=== PATIENT | male | born 1970 | race Caucasian/White ===

== ENCOUNTER 2020-03-24 07:14 | Outpatient (CLI) | payer OTHER | END 2020-03-24 07:17 | disposition home or self-care (01) | LOC: NUCLEAR 07:14 | DX: E04.1 Nontoxic single thyroid nodule (principal) | CPT/HCPCS: 78012; A9531 ==

== ENCOUNTER 2020-03-25 07:13 | Outpatient (CLI) | payer OTHER | END 2020-03-25 13:20 | disposition home or self-care (01) | LOC: NUCLEAR 07:13 | DX: E04.1 Nontoxic single thyroid nodule (principal) | CPT/HCPCS: 78013; A9512 ==